=== PATIENT | male | born 1965 | race Caucasian/White ===

== ENCOUNTER 2016-04-12 01:20 | Inpatient (IN) | payer MEDICARE ==
[2016-04-12 04:55] LABS: BUN/CREATININE RATIO 6 (0-10)
--- NOTE | 2016-04-12 14:41 | NUR ---
1250-PT O2 SAT 78-80%, PT MOUTH BREATHING, GASPING, DR MENDEZ NOTIFIED, DR RAHMAN CONSULTED, PT INTUBATED AT 1306.
[2016-04-12 16:17] LABS: RED BLOOD COUNT 2.98 M/UL (4.20-5.50); WHITE BLOOD COUNT 19.1 K/UL (4.5-11.0)
[2016-04-13 05:21] LABS: HEMOGLOBIN 10.5 gm/dl (14.0-17.5); RED BLOOD COUNT 2.9 M/UL (4.20-5.50); WHITE BLOOD COUNT 17.4 K/UL (4.5-11.0)
[2016-04-14 04:55] LABS: RED BLOOD COUNT 2.74 M/UL (4.20-5.50); WHITE BLOOD COUNT 20.8 K/UL (4.5-11.0)
[2016-04-15 05:09] LABS: HEMOGLOBIN 10.1 gm/dl (14.0-17.5); RED BLOOD COUNT 2.75 M/UL (4.20-5.50); WHITE BLOOD COUNT 21.9 K/UL (4.5-11.0)
[2016-04-16 05:14] LABS: HEMOGLOBIN 10.2 gm/dl (14.0-17.5); RED BLOOD COUNT 2.8 M/UL (4.20-5.50); WHITE BLOOD COUNT 17.7 K/UL (4.5-11.0)
[2016-04-16 05:33] LABS: BUN/CREATININE RATIO 16 (0-10)
[2016-04-17 03:32] LABS: HEMOGLOBIN 10.3 gm/dl (14.0-17.5); RED BLOOD COUNT 2.78 M/UL (4.20-5.50); WHITE BLOOD COUNT 18.9 K/UL (4.5-11.0)
[2016-04-17 03:51] LABS: BUN/CREATININE RATIO 18 (0-10)
[2016-04-18 04:52] LABS: HEMOGLOBIN 10.5 gm/dl (14.0-17.5); RED BLOOD COUNT 2.9 M/UL (4.20-5.50); WHITE BLOOD COUNT 24.4 K/UL (4.5-11.0)
[2016-04-18 05:06] LABS: BUN/CREATININE RATIO 24 (0-10)
[2016-04-19 02:41] LABS: HEMOGLOBIN 10.3 gm/dl (14.0-17.5); RED BLOOD COUNT 2.85 M/UL (4.20-5.50); WHITE BLOOD COUNT 23.2 K/UL (4.5-11.0)
[2016-04-19 03:00] LABS: BUN/CREATININE RATIO 30 (0-10)
[2016-04-20 05:20] LABS: HEMOGLOBIN 9.8 gm/dl (14.0-17.5); RED BLOOD COUNT 2.77 M/UL (4.20-5.50); WHITE BLOOD COUNT 23.8 K/UL (4.5-11.0)
[2016-04-20 05:57] LABS: BUN/CREATININE RATIO 29 (0-10)
[2016-04-21 04:37] LABS: HEMOGLOBIN 10.4 gm/dl (14.0-17.5); RED BLOOD COUNT 2.92 M/UL (4.20-5.50); WHITE BLOOD COUNT 25.1 K/UL (4.5-11.0)
[2016-04-21 05:05] LABS: BUN/CREATININE RATIO 28 (0-10)
[2016-04-22 04:55] LABS: HEMOGLOBIN 10.3 gm/dl (14.0-17.5); RED BLOOD COUNT 2.91 M/UL (4.20-5.50); WHITE BLOOD COUNT 26.5 K/UL (4.5-11.0)
[2016-04-22 05:26] LABS: BUN/CREATININE RATIO 23 (0-10)
[2016-04-23 07:06] LABS: RED BLOOD COUNT 3.1 M/UL (4.20-5.50); WHITE BLOOD COUNT 24.8 K/UL (4.5-11.0)
[2016-04-23 07:22] LABS: BUN/CREATININE RATIO 17 (0-10)
[2016-04-24 06:32] LABS: HEMOGLOBIN 10.2 gm/dl (14.0-17.5); RED BLOOD COUNT 2.91 M/UL (4.20-5.50); WHITE BLOOD COUNT 22.8 K/UL (4.5-11.0)
[2016-04-24 06:54] LABS: BUN/CREATININE RATIO 17 (0-10)
[2016-04-25] MEDS ORDERED: MAGNESIUM400 MG PO (14:38)
[2016-04-25] MEDS ORDERED: CATAPRES-TTS 31 EACH TD (14:39)
[2016-04-25] MEDS ORDERED: ASPIRIN EC81 MG PO (14:39)
[2016-04-25] MEDS ORDERED: ENSURE ORIGINA237 ML PO (14:40)
[2016-04-25] MEDS ORDERED: THIAMINE HCL100 MG PO (14:40)
[2016-04-25] MEDS ORDERED: FOLIC ACID1 MG PO (14:40)
[2016-04-25] MEDS ORDERED: DAILY MULTIPLE1 EAC1 PO (14:41)
[2016-04-25] MEDS ORDERED: LOPRESSOR100 MG PO (14:41)
[2016-04-25] MEDS ORDERED: LANOXIN TAB 00.25 MG PO (14:41)
[2016-04-25] MEDS ORDERED: HYDROCORTISONE30 G5 TD (15:02)
== END 2016-04-25 16:30 | disposition home or self-care (01) | DRG 207 ==
LOC: PROG CARE 02:18 → CCU 02:18 → PROG CARE 04-19 15:13 → MED SURG 4 04-23 19:55
PROVIDERS: Emergency Medicine; Hospitalist; Internal Medicine; Internal Medicine Critical Care Medicine; ADMIT Internal Medicine
PROC: 3E0G76Z Introduction of Nutritional Substance into Upper GI, Via Natural or Artificial Opening (ICD-10-PCS; principal; 2016-04-12)
PROC: 0BH17EZ Insertion of Endotracheal Airway into Trachea, Via Natural or Artificial Opening (ICD-10-PCS; principal; 2016-04-12)
PROC: 05H633Z Insertion of Infusion Device into Left Subclavian Vein, Percutaneous Approach (ICD-10-PCS; principal; 2016-04-12)
PROC: 5A1955Z Respiratory Ventilation, Greater than 96 Consecutive Hours (ICD-10-PCS; principal; 2016-04-12)
PROC: 0BJ08ZZ Inspection of Tracheobronchial Tree, Via Natural or Artificial Opening Endoscopic (ICD-10-PCS; 2016-04-16)
DX: J80 Acute respiratory distress syndrome (principal); I50.23 Acute on chronic systolic (congestive) heart failure; J69.0 Pneumonitis due to inhalation of food and vomit; F10.231 Alcohol dependence with withdrawal delirium; F10.27 Alcohol dependence with alcohol-induced persisting dementia; N17.9 Acute kidney failure, unspecified; I13.0 Hypertensive heart and chronic kidney disease with heart failure and stage 1 through stage 4 chronic kidney disease, or unspecified chronic kidney disease; K52.1 Toxic gastroenteritis and colitis; J98.11 Atelectasis; J96.02 Acute respiratory failure with hypercapnia; G31.2 Degeneration of nervous system due to alcohol; I48.2 Chronic atrial fibrillation; E87.70 Fluid overload, unspecified; I20.9 Angina pectoris, unspecified; E87.6 Hypokalemia; R10.13 Epigastric pain; E83.42 Hypomagnesemia; F17.210 Nicotine dependence, cigarettes, uncomplicated; N18.1 Chronic kidney disease, stage 1; B96.89 Other specified bacterial agents as the cause of diseases classified elsewhere; D53.9 Nutritional anemia, unspecified; R53.81 Other malaise; D72.829 Elevated white blood cell count, unspecified; T45.0X5A Adverse effect of antiallergic and antiemetic drugs, initial encounter; T36.1X5A Adverse effect of cephalosporins and other beta-lactam antibiotics, initial encounter; B37.2 Candidiasis of skin and nail; R50.2 Drug induced fever; L27.0 Generalized skin eruption due to drugs and medicaments taken internally; Y92.230 Patient room in hospital as the place of occurrence of the external cause; G62.1 Alcoholic polyneuropathy; R26.0 Ataxic gait; Z28.21 Immunization not carried out because of patient refusal; Z91.81 History of falling
CPT/HCPCS: ECHO; 31500; 36415; 36600; 70450; 70551; 71010; 74000; 76705; 80048; 80053; 80074; 80162; 80202; 80307; 81001; 82140; 82330; 82550; 82553; 82728; 82803; 82962; 83735; 83880; 84100; 84132; 84300; 84439; 84443; 84484; 85025; 85027; 85610; 85730; 86140; 87040; 87045; 87046; 87070; 87086; 87205; 89055; 92526; 92610; 93005; 93306; 94002; 94003; 94640; 97110; 97116; 97530; 97535; C1751; C9113; J0360; J1160; J1205; J1335; J1644; J1940; J1956; J2060; J2250; J2765; J3360; J3370; J3411; J3475; J3480; J7030; J7040; J7050; J7070; Q0163